=== PATIENT | female | born 1955 | race Caucasian/White ===

== ENCOUNTER 2018-05-27 12:56 | Emergency (ER) | payer BC ==
[~2018-05-27] VITALS: Ht 172.7 cm; Wt 95.0 kg
[~2018-05-27 12:56] MED LIST: AMO125L8; FLOINH4; MOT600
[2018-05-27 13:29] VITALS: Ht 172.7 cm; Wt 95.0 kg
[2018-05-27 15:48] VITALS: BP 151/87
== END 2018-05-27 15:48 | disposition home or self-care (01) ==
LOC: ED 12:56
DX: M79.632 Pain in left forearm (principal); E11.9 Type 2 diabetes mellitus without complications; R20.2 Paresthesia of skin; W25.XXXA Contact with sharp glass, initial encounter; Y93.G1 Activity, food preparation and clean up; Y92.89 Other specified places as the place of occurrence of the external cause; Y99.8 Other external cause status
CPT/HCPCS: Q0092